=== PATIENT | female | born 1940 | race Caucasian/White ===

== ENCOUNTER 2019-12-25 16:26 | Emergency (ER) | payer MEDICARE ==
[~2019-12-25] VITALS: Ht 162.6 cm; Wt 92.5 kg
[2019-12-25] MEDS ORDERED: SIMVASTATIN80 MG PO (16:41)
[2019-12-25] MEDS ORDERED: PLAVIX 75 MG TA75 MG PO (16:42)
[2019-12-25] MEDS ORDERED: OMEPRAZOLE40 MG PO (16:42)
[2019-12-25] MEDS ORDERED: LISINOPRIL2.5 MG PO (16:42)
[2019-12-25] MEDS ORDERED: CARVEDILOL12.5 MG PO (16:42)
[2019-12-25] MEDS ORDERED: TRAVATAN Z5 ML OPHTHALMIC (16:43)
[2019-12-25] MEDS ORDERED: SUPER THERAVIT1 EACH PO (16:43)
[2019-12-25] MEDS ORDERED: ASA81BEC PO (16:43)
[2019-12-25] MEDS ORDERED: MILK THISTLE175 M3 PO (16:44)
[2019-12-25] MEDS ORDERED: VITAL-D RX TAB1 EACH PO (16:44)
[2019-12-25] MEDS ORDERED: FISH OIL 1,0001 EAC9 PO (16:45)
[2019-12-25] MEDS ORDERED: NORCO 5-325 TA1 EAC2 PO (19:12)
[2019-12-25 19:39] VITALS: BP 121/55
== END 2019-12-25 19:40 | disposition home or self-care (01) ==
LOC: M.ERS 16:26
DX: S02.2XXA Fracture of nasal bones, initial encounter for closed fracture (principal); S00.531A Contusion of lip, initial encounter; S00.83XA Contusion of other part of head, initial encounter; I10 Essential (primary) hypertension; Z88.1 Allergy status to other antibiotic agents; Z88.2 Allergy status to sulfonamides; Z90.49 Acquired absence of other specified parts of digestive tract; W18.39XA Other fall on same level, initial encounter; Y93.89 Activity, other specified; Y92.89 Other specified places as the place of occurrence of the external cause; Y99.8 Other external cause status